=== PATIENT | female | born 1960 | race African-American/Black ===

== ENCOUNTER 2017-08-31 14:08 | Emergency (ER) | payer OTHER ==
[2017-08-31] MEDS: IPRATRPIUM/ALBUTEROL 0.5/2.5MG 3 ML NEBU. NEB (15:11)
[2017-08-31] MEDS: predniSONE 10 MG TABLET PO (15:15)
[2017-08-31] MEDS: cloNIDine HCL 0.1 MG TABLET PO (15:37)
[2017-08-31] MEDS: ALBUTEROL SULFATE 2.5 MG/3 ML NEBU. CONT NEB (15:46)
[2017-08-31] MEDS ORDERED: cefTRIAXone IM 1 GM VIAL IM (17:45)
== END 2017-08-31 17:56 | disposition home or self-care (01) ==
LOC: ER 14:08
DX: J45.909 Unspecified asthma, uncomplicated (principal); Z88.0 Allergy status to penicillin
CPT/HCPCS: 71046; 94640; 94644; 99284; J7512; J7613; J7620